=== PATIENT | female | born 1945 | race Caucasian/White ===

== ENCOUNTER 2017-08-01 06:15 | Day surgery (SDC) | payer MEDICARE, BC ==
[~2017-08-01 06:15] MED LIST: ATEN-102 PO; ESOM1CAP6 PO; METF500 PO; ROSU5 PO; ST JTAB PO; SYNT88TA PO
[2017-08-01] MEDS ORDERED: MUPIROCIN 2% OINT 1 APPLIC/GM SYR NASAL SCH (06:30)
[2017-08-01] MEDS ORDERED: NS 1000 ML IV SCH (06:30)
[2017-08-01] MEDS ORDERED: CHLORHEXIDINE GLUCONATE 2 % 1 PACK (2 CLOTHS) TOPICAL SCH (06:45)
[2017-08-01] MEDS ORDERED: POVIDONE IODINE 5% (ANTISEPSIS KIT) 4 APPLICATIONS EACH NARE SCH (06:45)
[2017-08-01] MEDS ORDERED: ceFAZolin 2 GM PREMIX 50 ML IV SCH (06:45)
[2017-08-01] MEDS ORDERED: LEVO88TA2 PO (06:57)
[2017-08-01] MEDS ORDERED: ASPI81TA5 PO (06:57)
[2017-08-01] MEDS ORDERED: IBUP800T23 PO (06:57)
[2017-08-01] MEDS ORDERED: LOSA100T PO (06:57)
[2017-08-01] MEDS ORDERED: GLIM1TAB PO (06:57)
[2017-08-01] MEDS ORDERED: MEGA RED OMEGA PO (06:57)
[2017-08-01] MEDS ORDERED: METO50TA PO (06:57)
[2017-08-01] MEDS ORDERED: NEXI20CA PO (06:57)
[2017-08-01] MEDS ORDERED: AMLO10TA2 PO (06:57)
[2017-08-01] MEDS ORDERED: METF500T PO (06:57)
[2017-08-01] MEDS ORDERED: HYDR25TA5 PO (06:57)
[2017-08-01] MEDS ORDERED: ROSU1TAB6 PO (06:58)
[2017-08-01] MEDS ORDERED: RANI150T PO (06:58)
[2017-08-01] MEDS ORDERED: SYSTSOL EACH EYE (06:58)
[2017-08-01] MEDS ORDERED: MIDAZOLAM HCL 2 MG/2 ML VIAL ONE (07:09)
[2017-08-01] MEDS ORDERED: MIDAZOLAM HCL 5 MG/5 ML VIAL ONE (08:01)
--- NOTE | 2017-08-01 09:00 | MA ---
cc: GUS SANTIAGO MD DATE 08/01/2017 PERFORMING PHYSICIAN Gus Santiago MD PROCEDURE PERFORMED 1. 15 minutes moderate IV sedation. 2. Loop recorder insertion. DESCRIPTION OF PROCEDURE The patient was brought to the DOC unit in postabsorptive state. After informed consent was obtained, 4 mg of Versed and 50 mcg of fentanyl was given for moderate IV sedation. Next, a [employer] LINQ loop recorder was inserted subcutaneously to the left chest. The patient tolerated the procedure well without any apparent complications. Tachybrady pause atrial fibrillation detection was enabled. The initial R-wave was 0.23 mV. The serial number was [id number]. MD CALEB Mann/JULI /8:12 AM /8:55 AM
== END 2017-08-01 09:25 | disposition home or self-care (01) ==
LOC: HDOC 06:15 → HDIC 06:15 → HDOC 09:25
PROVIDERS: ATTEND Nuclear Medicine Nuclear Cardiology
DX: R00.2 Palpitations (principal); I11.9 Hypertensive heart disease without heart failure; E03.9 Hypothyroidism, unspecified; E78.2 Mixed hyperlipidemia; E11.9 Type 2 diabetes mellitus without complications; Z87.891 Personal history of nicotine dependence; Z79.84 Long term (current) use of oral hypoglycemic drugs; Z79.82 Long term (current) use of aspirin; Z79.899 Other long term (current) drug therapy
CPT/HCPCS: 33282; C1764; J0690; J2250; J3010; J7030